=== PATIENT | male | born 1940 | race Two or more races ===

== ENCOUNTER 2016-07-28 16:00 | Inpatient (IN) | payer MEDICARE, MEDICAID ==
[~2016-07-28] VITALS: Ht 172.7 cm; Wt 66.1 kg
--- NOTE | ~2016-07-28 | HP ---
PATIENT'S NAME: TARUN [facility] AGE: 76 Y [address] ROOM: [address] [address] LOCATION: [facility] [place] ADMIT DATE: 07/28/2016 History & Physical DISCHARGE DATE: FAMILY PHYSICIAN: PHYSICIAN, UNKNOWN ATTENDING PHYSICIAN: Rosalia ARNOLD DATE OF SERVICE: CHIEF COMPLAINT: Right hip fracture. HISTORY OF PRESENT ILLNESS: The patient is a 76-year-old patient with past medical history of alcohol abuse, BPH, hypertension, and dementia, who presents here with right hip fracture from [facility]. The patient is a poor historian due to dementia. Initially, interview was attempted with the use of filling machine tender via phone. However, the patient did not want to use phone interview. Thus, interview was done with a family member, his granddaughter, last name. Radha Singleton. According to family member, granddaughter, the patient was complaining about right hip pain today and was unable to walk. He was brought in by EMS to [facility] and had a CT that shows consistent with nondisplaced low neck intertrochanteric fracture on the right. The patient was transferred to our hospital for orthopedic evaluation. Dr. Mcclure accepted the patient for Internal Medicine to admit. The patient was recently admitted to [facility] close to a week ago for alcohol intoxication, nausea, and vomiting with hematemesis. The patient was placed in for few days and was discharged home. Family reports that they are not quite sure whether he continued to drink or not and reports that he has tremor when he does not drink. According to the family member, the patient has a long history of alcohol abuse. 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 Collecting scrap metals requires some physical activity and is able to achieve those activities. There is history of unspecified chest pain and left upper extremity pain. According to his daughter, he complained about neck pain radiating to his arm bilaterally and also 1 episode of chest pain that occurred a few weeks ago. There is no prior history of coronary artery disease. AST MEDICAL HISTORY: Hypertension, alcohol abuse, BPH, hard of hearing, and hyperlipidemia. SURGICAL HISTORY: TURP. FAMILY HISTORY: PATIENT'S NAME: TARUN [facility] AGE: 76 Y [address] ROOM: [address] [address] LOCATION: [facility] [place] ADMIT DATE: 07/28/2016 History & Physical DISCHARGE DATE: FAMILY PHYSICIAN: PHYSICIAN, UNKNOWN ATTENDING PHYSICIAN: Rosalia ARNOLD Unable to acquire due to the patient's poor mentation. 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 MEDICATIONS: Recently being reconciled. REVIEW OF SYSTEMS: Unable to fully obtain due to the patient's poor mentation. PHYSICAL EXAMINATION: VITAL SIGNS: Temperature 97.9, blood pressure 171/79, heart rate of 70, and O2 saturation of 97 on room air with respiratory rate of 15. GENERAL APPEARANCE: The patient is alert and awake, in no acute distress, is lying on the bed. HEAD: Normocephalic, atraumatic. EYES: Extraocular muscle intact. NOSE: No nasal discharge. EARS: The patient is hard of hearing. CHEST: Clear to auscultation bilaterally. HEART: Regular rate and rhythm. No murmurs, rubs, or gallops. ABDOMEN: Soft, nontender, and nondistended. Bowel sounds present. EXTREMITIES: Distal pulses present. MUSCULOSKELETAL: The patient is unable to move his right hip due to pain. SURVEYING TEACHER: The patient is alert and oriented x1, only oriented to self. Motor and sensory grossly intact. LABORATORY DATA: Drawn from outside hospital shows white blood cell count of 7.9, hemoglobin of 12.4, and platelets of 205. Creatinine of 1, BUN of 15, CO2 of 25, potassium of 3.5, and sodium of 137. EKG shows normal sinus rhythm. No ischemic ST and T-wave change. ASSESSMENT AND PLAN: 1. Right hip fracture. The patient is a 76-year-old gentleman with a past medical history of hypertension, hyperlipidemia, dementia, and alcohol abuse, who presents here with right hip fracture. The patient had an unwitnessed fall. The patient does not have history of coronary artery disease in the last 30 days. 2. Unstable angina. The patient appears compensated, does not appear to be in decompensated heart failure, and no history of significant arrhythmia and valvular disease on physical examination. The patient's MET is PATIENT'S NAME: LUCEROKIN PRADO [facility] AGE: 76 Y [address] ROOM: [address] [address] LOCATION: [facility] [place] ADMIT DATE: 07/28/2016 History & Physical DISCHARGE DATE: FAMILY PHYSICIAN: PHYSICIAN, UNKNOWN ATTENDING PHYSICIAN: Rosalia ARNOLD greater than 4 before this incident. However, there is an unclear history of neck pain radiating to upper extremity versus chest pain, unable to clearly identify that as the patient has dementia and unable to recall. According to daughter, he had some cervical neck pain with radiculopathy. Thus, we will check EKG again in the morning. We will acquire echocardiogram to further investigate cardiac issues. We will continue beta-paulette and aspirin and Lipitor. The patient has intermediate risk for the proposed surgery. However, I believe there is no medical intervention needed to be done that can change the surgical outcome. I have discussed his risk factors with his POA, which is his daughter, Bianca Lucero. Family accepts the risks and wants to proceed with the procedure. We will acquire echocardiogram in the morning. If the echo is unremarkable, to proceed with planned surgery. 3. Alcohol abuse. The patient has a history of alcohol abuse with some withdrawal symptoms. We will place the patient on CIWA protocol. We will start thiamine IV. 4. Hypertension. Continue home medication of beta paulette. 5. Hyperlipidemia. To continue Lipitor. 6. Dementia, ongoing. Strict bedrest. The patient has risks factors for fall. Greater than 60 minutes was spent on the patient's care. Thank. Greater than 50% spent on discussing and direct patient care. All questions were answered. Discussed the case with his POA, Bianca Lucero, over the phone. Also, discussed the case with Dr. Mcclure. We will admit the patient for hip fracture and possible surgical intervention. Code status on admission, full code. CLAYTON POLO MD AD/modl /[id number] D: T: [id number] HISTORY & PHYSICAL
--- NOTE | ~2016-07-28 | ECHO ---
Transthoracic Echocardiography Report (TTE) Demographics Patient Name TARUN, Date of Study 07/29/2016 KIN Patient Number [id number] Visit Number [id number] Date of 1940 Room Number G3205 Gender Male Number Age 76 year(s) Referring Cristhian Lindsey Child Development Instructor Sandhya Tariq [facility], Physician RVT Physician Interpreting Guillaumelorieayala Hatch Studio Operator Physician Supervising Ordering Cristhian Lindsey MD/MLP Physician Nurse Stress Machine Operations Supervisor Conclusions Contractility Score Summary Normal Left Ventricular contractility was noted. Summary Technically difficult exam with suboptimal images. Overall, left ventricular systolic function appears preserved with estimated ejection fraction of 55-60%. Diastolic assessment reveals Grade I diastolic dysfunction. Mild tricuspid regurgitation by color Doppler. The aortic valve is mildly sclerotic. Procedure Type of Study TTE procedure:2D Echocardiogram. Procedure Date Date: 07/29/2016 Start: 07:12 AM Study Location: Inpatient Portable Technical Quality: Poor visualization due to patient immobility. Indications:Chest pain. Additional Indications:pre op Appropriate Use Criteria: 9 Patient Status: Routine Rhythm: Within normal limits HR: 62 bpm M-Mode/2D Measurements LV Diastolic Dimension: 4.23 cm LV Systolic Dimension: 3.62 cm LV Septum Diastolic: 0.94 cm LV PW Diastolic: 0.77 cm AO Root Dimension: 2.4 cm Cardiac Output: 3.76 l/min AV Cusp Separation: 2.1 cm RV Diastolic Dimension: 3.48 cm LA volume: 56 ml IVC Inspiration: 0.73 cm LVOT: 2.1 cm RV Base: 3.28 cm LVOT VTI: 17.5 cm RV Mid: 2.01 cm LV Stroke volume: 60.58 ml TAPSE: 1.8 cm TDI-S': 15 cm/s Doppler Measurements AV Peak Velocity: 1.37 m/s MV Peak E-Wave: 0.53 m/s AV Peak Gradient: 7.51 mmHg MV Peak A-Wave: 0.62 m/s AV Mean Gradient: 4 mmHg MV E/A Ratio: 0.86 LVOT Peak Velocity: 0.67 m/s MV P1/2t: 63 msec TR Gradient:44.36 mmHg PV Peak Velocity: 0.76 m/s Estimated RAP:3 mmHg PV Peak Gradient: 2.3 mmHg Estimated RVSP: 47 mmHg Estimated PASP: 47.36 mmHg E' Septal Velocity: 0.1 m/s A' Septal Velocity: 0.15 m/s E' Lateral Velocity: 0.08 m/s Findings Left Ventricle The estimated left ventricular ejection fraction is 55-60%. Diastolic assessment reveals Grade I diastolic dysfunction. Right Ventricle Grossly normal right ventricle structure and function. Left Atrium Grossly normal left atrial size. Right Atrium Grossly normal right atrial size. Mitral Valve Mild mitral regurgitation by color Doppler. not well visualised Aortic Valve The aortic valve is mildly sclerotic. Tricuspid Valve Mild tricuspid regurgitation by color Doppler. RV systolic pressure could not be estimated accurately due to inadequate TR jet. Pulmonic Valve The pulmonic valve is not well visualized. Pericardial Effusion Trivial pericardial effusion. Miscellaneous Visualized portions of the aortic root and ascending aorta appear normal in size. Pleural Effusion Pleural effusion present. Contractility Score LV regional wall motion:(0-Non visualized 1-Normal 2-Hypokinesis 3-Akinesis 4-Dyskinesis 5-Aneurysm) Signature dtt: GARFIELD VALLES dtd: 07/29/16 0712 Physician Self Edit
--- NOTE | ~2016-07-28 | CON ---
PATIENT'S NAME: TARUN [facility] AGE: 76 Y [address] ROOM: [address] [address] [place] [facility] [place] DATE: 07/28/2016 Consultation DISCHARGE DATE: FAMILY PHYSICIAN: PHYSICIAN, UNKNOWN ATTENDING PHYSICIAN: Rosalia ARNOLD REFERRING PHYSICIAN: JOSE MONTES DO CHIEF COMPLAINT: Right hip pain. HISTORY OF PRESENT ILLNESS: Provided by granddaughter who was present as an biztalk consultant in the room, states he had a fall. Also reviewing the ER notes from [place] reported fall last evening with right hip pain. X-rays reviewed from outside facility in [place] show a nondisplaced transcervical fracture, best appreciated on lateral view. He also has considerable calcifications with appearance of vessel clips from prior peripheral vascular disease treatment within the region of the femoral vessels. On exam, the patient appears demented, this is his baseline according to the granddaughter who spends much time with him. He speaks Japanese and his granddaughter is present who is bilingual, understanding all concerns. He is telling me he needs to go to the magi or bathroom and he has to go number 1 and he has a Quiñonez in. This is explained to him by his daughter multiple times, he does not seem to get it. He does have a history of mental status change, apparently drinks quite a bit of alcohol. Other medical history obtained from the chart includes peripheral vascular disease, mental status change, and alcoholism. PHYSICAL EXAMINATION: GENERAL: The patient is lying supine in the bed. He has no pain moving bilateral upper extremities. No pain in the cervical, thoracic, or lumbar spine. No pain moving his left lower extremity. He has pain with minimal motion to his right with log roll. There is no swelling on his knees or ankles. He moves his feet up and down. His compartments are soft. He is cachectic-appearing. ABDOMEN: Soft, nontender, and nondistended. FAMILY HISTORY: Unable to obtain as his granddaughter is here today and he is unable to provide that information. IMPRESSION: A 76-year-old male with reported fall last evening with nondisplaced transcervical right femoral neck hip fracture. PLAN: We will plan medical optimization and clearance by the hospitalist whom he is [facility] 76 Y [address] ROOM: [address] [address] [place]: [facility] [place]MIT DATE: 07/28/2016 Consultation DISCHARGE DATE: FAMILY PHYSICIAN: PHYSICIAN, UNKNOWN ATTENDING PHYSICIAN: Rosalia ARNOLD admitted to as well as Anesthesia. Once medically cleared and optimized, plan a cannulated screw fixation of the nondisplaced transcervical femoral neck fracture on the right. I discussed the risks, benefits, potential complications through pictures with the family members present, who interpreted in Japanese including infection, neurovascular injury, perioperative cardiac event or vascular event given his history of vascular disease. Understand the risk of infection, hardware cut out, fracture, propagation of the fracture requiring other surgeries, hardware irritation, and developing posttraumatic arthritis, requiring further surgery. Having been well informed, we will plan proceeding once medically cleared and optimized by both Anesthesia and the hospitalist. JOSE MONTES DO PH/modl /[id number] d: 07/29/16 0104 t: 07/30/16 1410, CONSULTATION REPORT
--- NOTE | ~2016-07-28 | DS ---
PATIENT'S NAME: KIN [facility] AGE: 76 Y [address] ROOM: [address] [address] LOCATION: [facility] [place] ADMIT DATE: 07/28/2016 Discharge Summary DISCHARGE DATE: 08/01/2016 FAMILY PHYSICIAN: Physician, Unknown ATTENDING PHYSICIAN: Cristhian Lindsey Dr. is the attending physician on the day of discharge. CONSULTING PHYSICIAN: Dr. Mcclure, Orthopedics. DISCHARGE DIAGNOSES: 1. Nondisplaced transcervical right femoral neck hip fracture, status post open reduction and internal fixation. 2. Dementia. 3. Acute blood loss anemia. 4. Hypertension. 5. Benign prostatic hyperplasia. 6. History of EtOH abuse. 7. Hyperlipidemia by history. 8. Aortic valve sclerosis. 9. Peripheral vascular disease. DISCHARGE MEDICATIONS: 1. Lisinopril/hydrochlorothiazide 20/12.5 mg 2 tablets p.o. daily. 2. Coreg 6.25 mg p.o. twice daily with meals. 3. Lovenox 40 mg subcutaneously daily through 08/08/2016. 4. Famotidine 20 mg p.o. twice daily. 5. Folic acid 1 mg p.o. daily. 6. Vitamin B1 100 mg p.o. daily. 7. Tylenol 500 mg 1 or 2 tablets every 6 hours p.r.n. fever or pain. 8. Panaca 5/325 mg 1 or 2 tablets p.o. q.4 hours p.r.n. [id number] pain. 9. Ultram 50 mg p.o. q.i.d. p.r.n. pain. 10. Dulcolax suppository 10 mg rectally p.r.n. constipation. 11. Milk of magnesia 30 mL p.o. daily p.r.n. constipation. 12. Fleet Enema 133 mL rectally p.r.n. constipation. 13. Colace 100 mg p.o. b.i.d. for constipation. 14. Senna 2 tablets p.o. b.i.d. for constipation. 15. MiraLax 17 g p.o. daily for constipation. PRINCIPAL PROCEDURES: On 07/29/2016, screw fixation of right transcervical femoral fracture with Dr. Haile Mcclure, under general anesthesia. HOSPITAL COURSE: Please refer to the admitting history and physical dictated by Dr. Morrow for more detailed outline of the patient's presentation and also PATIENT'S NAME: KIN [facility] AGE: 76 Y [address] ROOM: [address] [place], [place] [address] LOCATION: [facility] [place] ADMIT DATE: 07/28/2016 Discharge Summary DISCHARGE DATE: 08/01/2016 FAMILY PHYSICIAN: Physician, Unknown ATTENDING PHYSICIAN: Cristhian Lindsey refer to Dr. Mcclure's consultation for more detailed outline of his consultation with the patient. The patient was admitted with his right hip fracture, and he was placed on bed rest on inpatient status. The patient was started on morphine for pain management. A CT of the head without contrast on 07/28 showed normal for his age, no acute findings. The patient had an echocardiogram obtained for surgical clearance. This was obtained on 07/29/2016 and showed an estimated ejection fraction of 55% to 60%. There was a grade 1 diastolic dysfunction noted. There was mild tricuspid regurgitation and mildly sclerotic aortic valve noted. The patient was cleared to proceed to the OR. The patient underwent the procedure and did not have any complications. We had a difficult time trying to obtain a reconciled home med list. This finally was obtained and home meds were resumed with the exception of Librium and Ultram on 07/30/2016. We did obtain a plain film of his lumbar spine as the patient had complained of radicular pain in his right thigh. There was degenerative scoliosis noted, but no acute findings. The patient had continued difficulties with confusion throughout his hospitalization, although he was pleasant. There was never any issues with combativeness or agitation. Family members were present throughout his hospitalization and who helped to interpret throughout our examinations. The patient did have difficulty adhering to toe-touch weightbearing status of his right lower extremity. He did work with Care Management to look at options for placement while we were continuing to work with therapies and working on having him comply with the weightbearing status. Ultimately, on 08/01/2016, the patient was able to be discharged to the [facility]. The patient will be on a diet as tolerated and is toe-touch weightbearing of the right lower extremity. Mepilex dressing is in place on the right hip. This should be in place for a total of 10 days, it was placed on 07/29/2016. The patient should shower with sauna and replace as needed or reinforce as needed. He should follow up with Dr. Mcclure in 2 weeks. We recommend to get PT and OT to continue to rehab following the surgical procedure. The patient was initially started on his Coreg upon admission; however, this was not on his home med reconciliation paperwork, but was continued as vital signs were stable and blood pressure was controlled. Family voiced understanding of this plan, and ultimately, the patient was discharged from our facility at approximately 2:00 on 08/01/2016. The discharge process of this patient took 40 plus minutes. ANA ASHLEY PA-C FOR RADHA SOLIZ MD PATIENT'S NAME: KIN [facility] AGE: 76 Y [address] ROOM: [place] [address] LOCATION: [facility] [place] ADMIT DATE: 07/28/2016 Discharge Summary DISCHARGE DATE: 08/01/2016 FAMILY PHYSICIAN: Physician, Unknown ATTENDING PHYSICIAN: Cristhian Lindsey/shabana /[id number] CC: Chano Nash MD d: 08/02/16 0058 t: 08/06/16 1033, DISCHARGE SUMMARY
--- NOTE | ~2016-07-28 | OR ---
PATIENT'S NAME: KIN DONNELLY [facility] AGE: 76 Y [address] ROOM: [address] [address] LOCATION: [facility] [place] ADMIT DATE: 07/28/2016 OR/Procedure Report DISCHARGE DATE: FAMILY PHYSICIAN: PHYSICIAN, UNKNOWN ATTENDING PHYSICIAN: Rosalia ARNOLD SURGEON: Jose Mcclure DO APPLIED ANTHROPOLOGIST: DATE OF PROCEDURE: 07/29/2016 PREOPERATIVE DIAGNOSIS: Right nondisplaced femoral neck hip fracture through the basi or transcervical femoral neck region. POSTOPERATIVE DIAGNOSIS: Right nondisplaced femoral neck hip fracture through the basi or transcervical femoral neck region. PROCEDURE PERFORMED: Cannulated screw fixation of right transcervical femoral neck fracture on the right. ANESTHESIA: General endotracheal plus 30 mL of 0.5% lidocaine with epi. ANTIBIOTICS: 2 g IV Ancef. ESTIMATED BLOOD LOSS: Less than 5 mL. INDICATIONS: Mr. Donnelly is a 76-year-old male, who reported fall recently with right hip pain. He had been walking on it. Was seen in [facility] emergency department where at first the ER doctor said there was no fracture. Later, the radiologist called it is not intertrochanteric, it is in the transcervical cervical at the basicervical junction. It is nondisplaced, best appreciated on lateral view. Treatment options discussed with the patient and family members with copy messenger who speaks both Lao and Albanian present. We had unsuccess using the VitaPortal translation computer device with the patient and family members who were available that gave much better communication skills. We discussed the risk of infection, neurovascular injury, the patient has a history of bilateral lower extremity peripheral vascular disease with prior surgery in the femoral distribution. He has had severe atrophy in the right gluteal region. The family members unable to give me any details of that. 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 He understands risks of infection, neurovascular injury, potential form of DVT which could lead to pulmonary embolism and even . He understands failure to follow our instructions can cause disruption of the fracture, pull out of the screws, of the femoral head if displacement occurs, and requiring removal of the hardware, and further more invasive surgery such as arthroplasty. Understands the risk of developing AV and/or post-traumatic PATIENT'S NAME: KIN DONNELLY [facility] AGE: 76 Y [address] ROOM: [address] [address] LOCATION: [facility] [place] ADMIT DATE: 07/28/2016 OR/Procedure Report DISCHARGE DATE: FAMILY PHYSICIAN: PHYSICIAN, UNKNOWN ATTENDING PHYSICIAN: Rosalia ARNOLD arthritis. He understands the potential from complications from anesthesia including anaphylactic reaction and even . DESCRIPTION OF PROCEDURE: Having been well informed, patient's family members understand the risks, benefits, treatment options, and potential complications, patient was brought back to the operative suite, placed under general endotracheal anesthesia. He was on a Tiline bed, well-padded bony extremities. Time-out confirmed the operative site. Preop antibiotics, x-ray confirmed good views of both AP and lateral confirming the fracture was still nondisplaced. Using cannulated screws, guidewires were placed. One proximal and two distal. The distal ones were the anterior and posterior cortex. Confirmation of the length of 2 at 100 mm, and 1 at 105 mm. The cortex was breached with drill and then partially threaded screws placed through the fracture site with washers. He was noted to have soft osteopenic bone. The 1st screw when I placed it in had perforation of the articular surface which was removed and new position placed with washer on all three. This was done through a 2 cm incision near the lesser trochanter. There was minimal blood loss. All hemostasis was achieved with Bovie cautery on the skin. The wound was irrigated and the tensor closed with #1 Vicryl. Subcutaneous tissue closed in a simple interrupted pattern followed by ángel and a sterile dressing. I had injected 30 mL of 0.5% Marcaine with epinephrine at the incision site. He will start DVT prophylaxis in the form of SCDs, DANNIE hose, and Lovenox in the a.m. for 10 days. He will be toe-touch weightbearing with use of a walker and fall precautions, and continued medical management of the hospitalist. JOSE MCCLURE DO PH/modl /[id number] d: 07/29/166 t: 07/30/16 1412, OPERATIVE SUMMARY
[2016-07-28 17:33] LABS: BASOPHIL % 0.2 %; EOSINOPHIL % 0.2 %; HEMATOCRIT 38.9 % (37.0-53.0); HEMOGLOBIN 13.2 g/dL (11.0-16.0); IMMATURE GRANULOCYTE % 0.4 %; LYMPHOCYTE # 1.3 K/uL (0.8-4.0); LYMPHOCYTE % 15.7 %; MCH 32.4 pg (27.0-34.0); MCHC 33.9 gm/dL (32.0-36.5); MCV 95.6 fl (83.0-98.0); MONOCYTE # 1.6 K/uL (0.0-1.0); MONOCYTE % 19.2 %; MPV 9.4 fl (9.4-12.4); NEUTROPHIL # (ANC) 5.2 K/uL (1.4-9.0); NEUTROPHIL % 64.3 %; NRBC % 0 /100WBC (0-0.00); PLATELET COUNT 215 K/uL (150-450); RBC 4.07 M/uL (3.50-5.50); WBC 8.1 K/uL (4.0-11.0)
[2016-07-28 17:51] LABS: ALBUMIN 3.3 gm/dL (3.5-5.0); ALK PHOS 78 IU/L (33-138); ALT 70 IU/L (12-78); ANION GAP 13.5 (10.0-19.0); AST 40 IU/L (10-40); BLOOD UREA NITROGEN 14 mg/dL (6-24); CALCIUM 8.3 mg/dL (8.5-10.5); CHLORIDE 106 mMol/L (96-110); CO2 27 mMol/L (22-32); ESTIMATED GFR (MDRD EQUATION) > 60; POTASSIUM 3.5 mMol/L (3.7-5.1); SODIUM 143 mMol/L (135-145); TOTAL BILIRUBIN 0.8 mg/dL (0.0-1.5); TOTAL PROTEIN 7.3 g/dL (6.0-8.4)
--- NOTE | 2016-07-28 18:01 | NUR ---
Significant Event: Arrived to room per tanya at 1630. Transfered to bed with two assist. Speaks swedish only, did not answer the educational interpreter on the language line. Family has not arrived at this time, unable to reach by phone. Hypertensive. Denies pain. Khang started in [place], had 450mL out upon arrival. Follow up:
[2016-07-28 20:17] LABS: AMPHETAMINE NEGATIVE (NEGATIVE); BARBITURATE NEGATIVE (NEGATIVE); COCAINE NEGATIVE (NEGATIVE); OPIATES NEGATIVE (NEGATIVE)
[2016-07-28 23:03] LABS: PROTIME 10.5 SECONDS (9.8-11.4)
--- NOTE | 2016-07-29 04:33 | NUR ---
Significant Event: Patient basically slept the entire shift, unable to speak lao or use language line because of dementia. History of ETOH abuse so monitor for detox, none noted. Vitals stable although slightly hypertensive. Granddaughter in room to interpret. Will have surgery in am for right fractured hip. Has denied pain. Doctor explained risks and benefits to granddaughter but patients daughter will be in this morning to sign consents. Pre-opt check list mostly completed. NPO since midnight. New IV started to left forearm. Follow up:Bed alarm for safety.
[2016-07-29 05:21] LABS: INR - (THERAPEUTIC) 0.99 (0.92-1.07); PROTIME 10.4 SECONDS (9.8-11.4)
[2016-07-29 05:23] LABS: ALBUMIN 2.7 gm/dL (3.5-5.0); ALK PHOS 61 IU/L (33-138); ALT 55 IU/L (12-78); ANION GAP 12.6 (10.0-19.0); AST 25 IU/L (10-40); BLOOD UREA NITROGEN 15 mg/dL (6-24); CALCIUM 7.8 mg/dL (8.5-10.5); CHLORIDE 108 mMol/L (96-110); CO2 25 mMol/L (22-32); CREATININE 0.9 mg/dL (0.6-1.3); ESTIMATED GFR (MDRD EQUATION) > 60; POTASSIUM 3.6 mMol/L (3.7-5.1); SODIUM 142 mMol/L (135-145); TOTAL BILIRUBIN 0.9 mg/dL (0.0-1.5); TOTAL PROTEIN 6.1 g/dL (6.0-8.4)
[2016-07-29] MEDS ORDERED: VITAMIN B-1100 M1 PO (10:40)
[2016-07-29] MEDS ORDERED: FOLIC ACID1 MG PO (10:40)
[2016-07-29] MEDS ORDERED: LIBRIUM25 MG PO (10:40)
[2016-07-29] MEDS ORDERED: ULTRAM50 MG PO (10:41)
[2016-07-29] MEDS ORDERED: ASPIRIN LO-DOSE81 MG PO (10:41)
[2016-07-29] MEDS ORDERED: LISINOPRIL-HCT1 EAC1 PO (10:41)
--- NOTE | 2016-07-29 11:46 | NUR ---
A-CONSULT RECEIVED, PER HIP FX ORDERS S/P R)HIP FX; TO OR THIS AM. HX OF ETOH ABUSE HT: 68 IN. WT: 66.1 KG. BMI: 22.1 LABS: NA 142, K+ 3.6, GLU 125, BUN 15, PUNCH PRESS FEEDER 0.9, ALB 2.7, PREALB 21.0 MEDS: LIPITOR, PEPCID, ZOFRAN, NORCO, MORPHINE, VIT B-1, ATIVAN, CEFAZOLIN DIET RX: NPO. PER FAMILY REPORT, NO WT LOSS BUT PT'S APPETITE AND PO INTAKE HAS DECREASED RECENTLY. EST NUTR NEEDS: 2300-1838 KCALS (28-32 KCALS/KG) 66-79 GM PROTEIN (1.0-1.2 GM/KG) 1 ML FLUID/KCAL D-AT NUTRITION RISK W/INCREASED NUTRIENT NEEDS R/T HEALING AEB FX HIP I-WILL START ENSURE ENLIVE BID WHEN DIET ADVANCED M/E-GOAL: PO INTAKE >/=50% BY DISCHARGE 1)F/U DIET RX, PO INTAKE, SUPPLEMENT, AND POC IN 3-5 DAYS 2)ASSIST NEEDED
--- NOTE | 2016-07-29 16:51 | NUR ---
Significant Event: Offunit for surgery from [id number]. Dressing to R) hip C/D/I. Ice at all times. Quiñonez patent. Patient speaks Occitan elza, Family translates. Language line in room, patient unable to use d/t dementia. CSM WNL. Denies pain. Follow up:
--- NOTE | 2016-07-30 05:10 | NUR ---
Significant Event: Patient denies pain, up to bedside commode and had a moderate BM. Doesn't speak romansh and has dementia. Denies pain. Neurochecks adequate. Granddaughter at bedside. On detox pathway because of hx of ETOH abuse. No detox noted. Follow up: Continue to monitor.
[2016-07-30 05:50] LABS: HEMOGLOBIN 11.2 g/dL (11.0-16.0)
[2016-07-30 08:16] LABS: ANION GAP 12.8 (10.0-19.0); BLOOD UREA NITROGEN 12 mg/dL (6-24); CALCIUM 8.2 mg/dL (8.5-10.5); CHLORIDE 103 mMol/L (96-110); CO2 27 mMol/L (22-32); ESTIMATED GFR (MDRD EQUATION) > 60; MAGNESIUM 1.8 mg/dL (1.8-2.6); PHOSPHORUS 3.1 mg/dL (2.5-4.9); POTASSIUM 3.8 mMol/L (3.7-5.1); SODIUM 139 mMol/L (135-145)
--- NOTE | 2016-07-30 11:48 | NUR ---
Valentina, superintendent menagerie and I visited pt and granddaughter at bedside. Introduced self and care management services to them with Valentina interpreting for me. Pt answers questions with prompting, but is evident is confused in conversation. Asked granddaughter if family is going to take pt home on discharge or if they would like me to look at [facility] or [facility] in [place] for a stay to continue to recuperate and work with therapy before he goes home, will be ready for dc in 1-2 days. She isn't sure but thinks family will take him home. Discussed with her that pt is taking 2 assist to maintain TTWB and asked if will have enough help at home and she shrugs her shoulders and nods her head. Explained danger of putting full weight on that leg is that it will fracture again, and needs to follow weight bearing restriction and have enough help. Explained pt insurance will cover skilled stay at [facility] or SNF. She nods her head. Asked granddaughter if there is other family that I can talk with, she says they will be here later. Asked if they will be here before 4 or 5 pm or after, she said she isn't sure. Asked if I can call someone who will be making that decision for the family. She said she can call her mom, asked if I can call her now and she says she is at work until 2:30. Told her we will be back around 4 and will call her mom then to talk about dc planning. She says okay. Will start referral to [facility] to see if they will be able to accept if that is what family decides.
--- NOTE | 2016-07-30 16:56 | NUR ---
Significant Event: Ambulates with two assist, walker, and gaitbelt. Does not maintain TTWB. Voids without dififculty, small BM today. [place] 1 tab last at 1350. Family at bedside. Confused at times. Dressing C/D/I. Follow up:
--- NOTE | 2016-07-31 04:44 | NUR ---
Significant Event: PATIENT IS GREEK SPEAKING WITH A HISTORY OF ALCOHOL ABUSE. LAST DRINK WAS SATURDAY A.M. FAMILY IN ROOM WITH PATIENT TO INTERPRET BUT PATIENT IS HARD OF HEARING MAKING IT DIFFICULT FOR FAMILY TO RELAY TO HIM. PATIENT DOES NOT UNDERSTAND PHONE LINE. CIWA ASSESSMENTS. PATIENT DENIES PAIN WHEN AT REST. TOE TOUCH WB WHICH PATIENT IS NON-COMPLIANT WITH. TELE, NO CALLS. ON ROOM AIR. Follow up:
[2016-07-31 05:16] LABS: HEMATOCRIT 31.3 % (37.0-53.0); HEMOGLOBIN 10.6 g/dL (11.0-16.0)
--- NOTE | 2016-07-31 17:00 | NUR ---
Significant Event: Alert. Vitals stable. Room air. [place] last at 0737. Dressing to right hip clean/dry/intact. 2 assist with gait belt and walker for transfer to/from bed/recliner. Patient does not understand that he should not put weight on the right leg. Incontinent of urine at times. Saline lock to left forearm. Follow up: Placement?
--- NOTE | 2016-07-31 23:04 | NUR ---
Significant Event: Patient has denied pain, but is bored, ambulated a short distance with 2 assist, walker and gait belt. Does poorly, granddaughter helps with translation. Got a W/C and granddaughters pushed him around some. CWIA score had been low, no s/s of withdrawal. Shower given as patient was incontient of urine and wanted one. Feels much better now. Follow up: Continue to monitor. Bed Alarm at all times.
--- NOTE | 2016-08-01 04:06 | NUR ---
Significant Event:Incontinent of urine at change of shift & was given shower. Is voiding ness colored urine per urinal, several times since then. Family is at bedside. 2 assist, gait belt & walker. Speaks Chadian. Did have 1 Pringle @ 0042 & was able to rest after that. Did use call beasley for urination. Did eat all of supper, 300 po & 920 void. Dressing to right hip is dry & intact.
[2016-08-01 04:54] LABS: HEMATOCRIT 32.2 % (37.0-53.0); HEMOGLOBIN 10.9 g/dL (11.0-16.0)
--- NOTE | 2016-08-01 10:16 | NUR ---
Called and talked with Kezia at [facility], they will not accept to [facility]. Called and talked with XI Snell for hospitalist. Pt not safe to go home and instructed to start referral to SNF. Called [facility] in [place] [phone] and talked with Minal, social media analyst and faxed referral to them at [phone]. Also called [facility] for [facility] ([place]/[facility]) [phone] and faxed referral to them for [facility] fax [phone]. Will talk with family about [facility] and [facility] referrals.
--- NOTE | 2016-08-01 13:37 | NUR ---
A-NUTRITION F/U S/P R)HIP FX; AWAITING PLACEMENT LABS REVIEWED: GLU 133, ALB 2.7 NO NEW MEDS DIET RX: REGULAR W/ENSURE ENLIVE BID. PO INTAKE 100%. EST NUTR NEEDS: [id number] KCALS AND 66-79 GM PROTEIN D-REASSESSED AT LOW NUTRITION RISK W/GOOD PO INTAKE; NO NUTRITION DX I-CONTINUE W/ENSURE ENLIVE BID TO PROVIDE ADDITIONAL NUTRIENTS M/E-WILL ASSIST NEEDED
--- NOTE | 2016-08-01 13:50 | NUR ---
[facility] called and will accept pt today and come get him this afternoon. Let pt, daughter and granddaughter at bedside know that, granddaughter translates for me and I explain that [facility] felt he would need more than 1 week to work with therapy and that they recommended long-term skilled as they can keep him longer. They are agreeable to that. Let XI Snell know and she let Dr Henry know. Gave nurse the phone number to call report and I faxed orders.
--- NOTE | 2016-08-01 14:13 | NUR ---
PT HX ALCOHOL ABUSE, BPH, HTN, DEMENTIA. TRANSFER FROM [facility] W/ R HIP FX. HAD SCREW FIXATION R HIP ON 07/29. DRESSING TO R HIP, C/D/I. TO BE ON X10 DAYS AND CHANGE PRN. PT UP WITH 1-2PA, GAITBELT AND WALKER, TTWB TO RLE. NEEDS VERBAL CUES. VSS ON ROOM AIR, AFEBRILE. PRN NORCO LAST AT 1244. FAMILY AT BEDSIDE. PT IS ENGLISH SPEAKING ONLY. TOLERATING REGULAR DIET. HAS BEEN CONTINENT THIS SHIFT, BUT CAN BE INCONTINENET OF URINE.
--- NOTE | 2016-08-01 16:59 | NUR ---
I HAVE REVIEWED AND AGREE WITH CHARTING COMPLETED BY [facility] STUDENT RICKIE ASHER FROM [id number] AYDE RIGGINS
== END 2016-08-01 14:50 | DRG 481 ==
LOC: GMSU 16:29
PROVIDERS: Internal Medicine; Orthopaedic Surgery; ADMIT Internal Medicine
PROC: 0QS604Z Reposition Right Upper Femur with Internal Fixation Device, Open Approach (ICD-10-PCS; principal; 2016-07-29)
DX: S72.034A Nondisplaced midcervical fracture of right femur, initial encounter for closed fracture (principal); I20.0 Unstable angina; F03.90 Unspecified dementia, unspecified severity, without behavioral disturbance, psychotic disturbance, mood disturbance, and anxiety; I10 Essential (primary) hypertension; E78.5 Hyperlipidemia, unspecified; N40.0 Benign prostatic hyperplasia without lower urinary tract symptoms; F10.10 Alcohol abuse, uncomplicated; F10.97 Alcohol use, unspecified with alcohol-induced persisting dementia; W19.XXXA Unspecified fall, initial encounter
CPT/HCPCS: C1713; J0690; J1644; J1650; J7042; J7120

== ENCOUNTER → 2016-08-24 | Outpatient (CLI) | payer MEDICARE, MEDICAID ==
[~2016-08-24] MED LIST: ASPIRIN LO-DOSE81 MG PO; FOLIC ACID1 MG PO; LIBRIUM25 MG PO; LISINOPRIL-HCT1 EAC1 PO; ULTRAM50 MG PO; VITAMIN B-1100 M1 PO
== END | disposition disaster alternative care site (69) ==
LOC: LGSMG 11:54
DX: F03.90 Unspecified dementia, unspecified severity, without behavioral disturbance, psychotic disturbance, mood disturbance, and anxiety (principal)